=== PATIENT | female | born 1955 | race Caucasian/White ===

== ENCOUNTER 2022-11-10 12:50 | Emergency (ER) | payer OTHER ==
[~2022-11-10] VITALS: Ht 154.9 cm; Wt 86.2 kg
[2022-11-10 13:05] VITALS: BP 147/81; PULSE 107; RESP 20; TEMP 98; O2SAT 90
--- NOTE | 2022-11-10 13:13 | NUR ---
TO ER BED 3
[2022-11-10] MEDS ORDERED: IPRATROPIUM 0.02% 0.5 MG/2.5 ML NEBU INH ONE ×2 (13:25→18:05)
[2022-11-10] MEDS ORDERED: ALBUTEROL 0.083% 2.5 MG/3 ML NEBU INH ONE ×2 (13:25→18:05)
--- NOTE | 2022-11-10 13:28 | NUR ---
Respiratory Therapist at bedside for respiratory intervention. Patient tolerated.
[2022-11-10 13:42] LABS: BASOPHILS # (AUTO) 0.1 K/uL (0.00-0.22); BASOPHILS % (AUTO) 1.1 % (0.0-2.0); EOSINOPHILS # (AUTO) 0.3 K/uL (0-0.4); HEMATOCRIT 45.4 % (36-48); LYMPHOCYTES # (AUTO) 3.6 K/uL (2.5-16.5); LYMPHOCYTES % (AUTO) 31.8 % (20.5-51.1); MEAN CORPUSCULAR HEMOGLOBIN 31 pg (27-31); MEAN CORPUSCULAR HGB CONC 33 g/dL (33-37); MEAN CORPUSCULAR VOLUME 92.9 fL (80-94); MONOCYTES # (AUTO) 0.7 K/uL (0.8-1.0); MONOCYTES % (AUTO) 5.7 % (1.7-9.3); NEUTROPHILS # (AUTO) 6.6 K/uL (1.8-7.7); NEUTROPHILS % (AUTO) 58.4 % (42.2-75.2); PLATELET COUNT (AUTO) 247 K/uL (140-450); RED BLOOD CELL COUNT(AUTO) 4.89 MIL/uL (4.20-5.40); RED CELL DISTRIBUTION WIDTH 14.9 % (11.6-13.7); WHITE BLOOD COUNT (AUTO) 11.4 K/uL (4.8-10.8)
[2022-11-10 13:49] VITALS: PULSE 105; RESP 18; O2SAT 91
[2022-11-10 14:23] LABS: ALBUMIN 3.8 g/dL (3.4-5.0); ANION GAP 15.3 (8-16); CARBON DIOXIDE 23.5 mmol/L (21-32); CREATININE 0.8 mg/dL (0.6-1.3); POTASSIUM 3.8 mmol/L (3.5-5.1); TOTAL BILIRUBIN 0.4 mg/dL (0.0-1.0)
[2022-11-10] MEDS ORDERED: cefTRIAXone 1,000 MG VIAL ONE (14:33)
--- NOTE | 2022-11-10 15:03 | NUR ---
PT AWAITING TO BE UPDATED ON FINDINGS. FAMILY AT BS WITH PT. NO DISTRESS NOTED. O2 4L NC ON GOING.
--- NOTE | 2022-11-10 16:37 | NUR ---
AN ADDITIONAL IV INSERTED FOR CT-ANGIO.
--- NOTE | 2022-11-10 16:42 | NUR ---
COVID TEST PERFORMED AND SENT TO THE LAB.
--- NOTE | 2022-11-10 16:43 | NUR ---
PT TAKEN TO CT-ANG[facility].
--- NOTE | 2022-11-10 17:49 | NUR ---
PT PLACED ON A BED ANTONIO. PT BECAME SOB AND TACHY WHILE GETING ON THE BED ANTONIO. PT WAS ABLE TO RECOVER SHORTLY AFTER. CALL PLACED TO RT FOR AN ADDITIONAL BREATHING TX. PT REMAINS ON O2 NC 5L. DAUGHTER AT BS. PT BEING PREPARED FOR POSSIBLE TRANSFER TO [facility].
[2022-11-10 18:08] VITALS: PULSE 103; RESP 22; O2SAT 92
--- NOTE | 2022-11-10 18:12 | NUR ---
RT AT BS ADMINISTERING BREATHING TX. PT TOLERATING TX WELL.
--- NOTE | 2022-11-10 18:31 | NUR ---
RT LOWERED O2 TO 3L NC. HE STATED, SHE IS TOLERATING BEING AT 93%. CRACKLES NOTED AT THE BASES OF BLL. DAUGHTER REMAINS AT BS. PT TO BE TRANSFERRED TO [facility]. WILL CALL REPORT TO THE FACILITY.
--- NOTE | 2022-11-10 18:41 | NUR ---
REPORT CALLED TO [facility] AT . PT TO GO TO ROOM 2142. ACCEPTING DOCTOR DR. BLAIR. REPORT GIVEN TO MIKE FOWLER.
[2022-11-10] MEDS ORDERED: HEPARIN PER PHARMACY MC PRN (18:55)
[2022-11-10] MEDS ORDERED: hePARIN / DEXT 5% PREMIX 250 ML IV ONE (18:55)
--- NOTE | 2022-11-10 18:56 | NUR ---
[facility] RESULT BACK. [facility] TRANSFER HELD. PT DX WITH BILATERAL PE'S. LAB CALLED TO DRAW PT, PTT, STAT. US CALLING [facility] TO TRANSFER PT OUT FOR A HIGHER LEVEL OF CARE. SUBMASSIVE PE. LAB TO REDRAW PT. INFORMING PT AND FAMILY OF NEW FINDINGS/RESULTS.
--- NOTE | 2022-11-10 19:04 | NUR ---
LAB DRAWING PT. AWAITING PTT TO START HEPARIN DRIP.
[2022-11-10 19:29] LABS: PROTHROMBIN TIME 10.2 secs (10.8-13.4)
--- NOTE | 2022-11-10 19:37 | NUR ---
DR. URIAS MADE AWARE OF THE LACTIC ACID OF 2.2. MD TO SEE PT.
--- NOTE | 2022-11-10 19:44 | NUR ---
SPOKE TO RANDY AT AFTER HOURS PHARMACY REGARDING HEPARIN STARTING DOSE RATE ACCORDING TO PTT RESULTS; PENDING ORDERS FROM PHARMACIST AT THIS TIME.
--- NOTE | 2022-11-10 20:43 | NUR ---
FOLLOWED UP WITH PHARMACY REGARDING HEPARIN STARTING RATE; SPOKE TO MAYTE, PHARMACIST, PER PHARMACIST, HE WILL CALL BACK WITH STARTING RATE. Addendum: 11/10/22 at 2246 by [id number] MD URIAS MADE AWARE
[2022-11-10] MEDS ORDERED: hePARIN / DEXT 5% PREMIX 250 ML IV SCH (21:10)
--- NOTE | 2022-11-10 22:43 | NUR ---
HEPARIN RELEASED BY PHARMACY WITHOUT STARTING. CALLED AGAIN, PHARMACY ASKED IF WE HAVE A PAPER WITH PROTOCOLS ,PHARMACY MADE AWARE THAT THEY ARE RESPONSIBLE FOR STARTING RATE, STATES HE WILL CALL BACK. MADE AWARE.
--- NOTE | 2022-11-11 00:14 | NUR ---
Respiratory Therapist at bedside for respiratory intervention.
--- NOTE | 2022-11-11 01:27 | NUR ---
RT AT BEDSIDE ASSESSING PT CONDITION; PT BREATHING ADEQUATELY ON 15 LPM VIA NRM.
--- NOTE | 2022-11-11 06:20 | NUR ---
RECEIVED CRITICAL LAB RESULT FOR PTT OF 112. PER HEPARIN PROTOCOL; IF PTT RESULT >90, HOLD HEPARIN DRIP FOR 1 HOUR THEN REDUCE DRIP BY 3 UNITS/KG/HR = 300 U/HR. HEPARIN DRIP HELD AT 0620.
--- NOTE | 2022-11-11 07:50 | NUR ---
CALLED PHARMACY TO VERIFY HEPARIN DRIP INFUSION RATE.
--- NOTE | 2022-11-11 07:56 | NUR ---
MOVED TO ER BED 5
--- NOTE | 2022-11-11 08:50 | NUR ---
UPDATED TRANSFER CENTER SPOKE WITH DEBORAH AT [facility] WITH CURRENT VITALS WAITING FOR RESPONSE FOR TRANSFER TO HIGH LEVEL OF CARE
--- NOTE | 2022-11-11 10:09 | NUR ---
SPOKE WITH DAUGHTER PRUDENCIO @ [phone]
--- NOTE | 2022-11-11 11:35 | NUR ---
ULTRASOUND AT BEDSIDE
--- NOTE | 2022-11-11 11:58 | NUR ---
CRITICAL LAB VALUE REPORTED FROM LAB PTT-70.3, NOTIFIED AND INSTRUCTED NURSE TO FOLLOW PROTOCOL. PER PROTOCOL NO TITRATION CHANGE.
--- NOTE | 2022-11-11 14:05 | NUR ---
ATTEMPTED TO GIVE REPORT TO BUSHRA TORREZ AND MICHAELLE FOWLER, WAS PUT ON HOLD MULTIPLE TIMES AND DISCONNECTED. AWAITING CALL BACK. ([facility]) ([phone])
--- NOTE | 2022-11-11 14:31 | NUR ---
GAVE REPORT TO IMDavid, PT WILL GO TO ROOM 2103 WITH 1.5 HR ETA
[2022-11-11 14:50] VITALS: BP 144/94; PULSE 108; RESP 20; TEMP 98.7; O2SAT 92
--- NOTE | 2022-11-11 14:50 | NUR ---
Patient to be transferred to [facility]. Is being transferred due to HIGHER LEVEL OF CARE. Receiving facility has accepting physician and available space. ER physician has signed transfer form. Patient or responsible democrat has agreed to transfer and signed form. Patient belongings inventoried and will be sent with patient. Copy of nursing notes, lab reports, EKG, Physicians Orders and X-rays to be sent with patient. Report called to IMY at receiving facility. [facility] ambulance service has been called for transfer. ETA is ONE HOUR.
[2022-11-11] MEDS: hePARIN / DEXT 5% PREMIX 250 ML IV PRN ×2 (14:55→15:00)
== END 2022-11-11 14:50 | disposition short-term general hospital (02) ==
LOC: MED 12:50
DX: R06.00 Dyspnea, unspecified (principal); Z20.822 Contact with and (suspected) exposure to COVID-19; Z79.899 Other long term (current) drug therapy
CPT/HCPCS: 36415; 71045; 71275; 80053; 83605; 83880; 84484; 85025; 85379; 85610; 85730; 87040; 87426; 93005; 93970; 94640; 96365; 96366; 96367; 99285; J0696; J1644; J7613; J7644; Q0092; Q9967